=== PATIENT | female | born 1960 | race Two or more races ===

== ENCOUNTER → 2018-10-21 10:02 | Outpatient (CLI) | payer OTHER ==
[~2018-10-21 10:02] MED LIST: AMILODIPINE PO; LEVOTHYROXINE25 MCG PO; LIVALO2 MG PO; LOVAZA PO; MICARDIS80 MG PO; VIT D PO
== END | disposition home or self-care (01) ==
LOC: EKG 10:02
DX: I10 Essential (primary) hypertension (principal)

== ENCOUNTER 2018-10-24 05:44 | Day surgery (SDC) | payer OTHER | END 2018-10-24 11:40 | disposition home or self-care (01) | LOC: CIR.AMB 05:44 | DX: M75.121 Complete rotator cuff tear or rupture of right shoulder, not specified as traumatic (principal) ==